=== PATIENT | male | born 1980 | race Caucasian/White ===

== ENCOUNTER 2020-05-01 10:02 | Emergency (ER) | payer BC ==
--- NOTE | 2020-05-01 11:56 | EDM.PDOC ---
ED HPI GENERAL MEDICAL PROBLEM - General Chief Complaint: Eye Problems Stated Complaint: R EYE INJURY Time Seen by Provider: 05/01/20 11:29 Source of Information: Reports: Patient, RN Notes Reviewed - History of Present Illness INITIAL COMMENTS - FREE TEXT/NARRATIVE: Onset of FB pain R eye yesterday. 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 Very irritated at rest and worse with blinking today. No welding or grinding. Does not wear contacts. Right Eye Pain Score (Numeric/FACES): 2 - Related Data Allergies Allergy/AdvReac Type Severity Reaction Status Date / Time No Known Allergies Allergy Verified 05/01/20 11:16 Home Meds: Home Meds . [No Known Home Meds] 05/01/20 [History] Past Medical History - Past Health History Medical/Surgical History: Denies Medical/Surgical History Social & Family History - Tobacco Use Smoking Status *Q: Never Smoker Second Hand Smoke Exposure: No - Caffeine Use Caffeine Use: Reports: None - Recreational Drug Use Recreational Drug Use: No ED ROS GENERAL - Review of Systems Review Of Systems: See Below Constitutional: Denies: Fever, Chills HEENT: Reports: Eye Pain Respiratory: Reports: No Symptoms Cardiovascular: Reports: No Symptoms GI/Abdominal: Reports: No Symptoms Musculoskeletal: Reports: No Symptoms Skin: Reports: No Symptoms ED EXAM GENERAL W FULL EYE - Physical Exam Exam: See Below General Appearance: Alert, No Apparent Distress Eye Exam: Right Eye: Conjunctival Injection (mild), PERRL, Bilateral Eye: Other (no FB visible at time of exam) Conjunctiva & Sclera: Bilateral: Other (no FB visible) Cornea Exam: Bilateral: Normal Appearance Head: Atraumatic. No: Facial Swelling Neck: Supple Respiratory/Chest: No Respiratory Distress Neurological: Alert, No Motor/Sensory Deficits Skin Exam: Warm, Dry, Normal Color, No Rash Course - Vital Signs Last Recorded V/S: Last Vital Signs Temp 97 F 05/01/20 11:14 Pulse 74 05/01/20 11:14 Resp 16 05/01/20 11:14 BP 150/91 H 05/01/20 11:14 Pulse Ox 97 05/01/20 11:14 - Orders/Labs/Meds Meds: Medications Discontinued Medications Generic Name Dose Route Start Last Admin Trade Name Freq PRN Reason Stop Dose Admin Sodium Chloride 250 ml 05/01/20 12:18 05/01/20 12:19 Sodium Chloride 0.9% IRR 05/01/20 12:19 250 ml ASDIRECTED ONE Administration - Re-Assessments/Exams Free Text/Narrative Re-Assessment/Exam: 05/01/20 11:57 no FB visible at time of exam, total relief of pain with properacaine. Irrigated with 250 ml NS. Departure - Departure Time of Disposition: 11:54 Disposition: Home, Self-Care 01 Condition: Fair Clinical Impression: Foreign body of right eye Qualifiers: Encounter type: initial encounter Qualified Code(s): T15.91XA - Foreign body on external eye, part unspecified, right eye, initial encounter - Discharge Information Instructions: Eye Foreign Body, [id number] Referrals: PCP,None [Primary Care Provider] - Forms: ED Department Discharge Additional Instructions: Your eye will continue to feel sore and irritated for 24 to 48 hrs. Tape shut today with eye pad or eye patch today as needed when not driving. Tylenol or ibuprofen as needed. See your eye Dr if not getting back to normal by Sunday as expected. Sepsis Event Note (ED) - Evaluation Sepsis Screening Result: No Definite Risk - Focused Exam Vital Signs: Vital Signs Temp Pulse Resp BP Pulse Ox 05/01/20 11:14 97 F 74 16 150/91 H 97
[2020-05-01] MEDS ORDERED: Sodium Chloride 0.9% Irrigation 1,000 ML Container IRR ONE (12:18)
== END 2020-05-01 12:21 | disposition home or self-care (01) ==
LOC: JD.ED 10:02
DX: T15.91XA Foreign body on external eye, part unspecified, right eye, initial encounter (principal)
CPT/HCPCS: 99282; 99283